=== PATIENT | female | born 1975 | race Caucasian/White ===

== ENCOUNTER 2024-03-27 12:31 | Outpatient (CLI) | payer MEDICAID | END 2024-03-27 23:59 | disposition home or self-care (01) | LOC: MRI 12:31 | PROVIDERS: ATTEND Podiatrist Foot & Ankle Surgery | DX: M72.2 Plantar fascial fibromatosis (principal); M79.671 Pain in right foot | CPT/HCPCS: 73718 ==

== ENCOUNTER 2024-07-28 08:16 | Outpatient (CLI) | payer MEDICAID | END 2024-07-28 23:59 | disposition home or self-care (01) | LOC: MRI02 08:16 | PROVIDERS: ATTEND Podiatrist Foot & Ankle Surgery | DX: M77.31 Calcaneal spur, right foot (principal); M24.571 Contracture, right ankle; M72.2 Plantar fascial fibromatosis; M79.671 Pain in right foot | CPT/HCPCS: 73721 ==